=== PATIENT | male | born 1995 | race Caucasian/White ===

== ENCOUNTER 2017-03-19 10:56 | Outpatient (CLI) | payer OTHER ==
[~2017-03-19] VITALS: Ht 180.3 cm; Wt 103.4 kg
== END 2017-03-19 11:15 | disposition home or self-care (01) ==
LOC: OFIC 805 10:56
DX: Z00.00 Encounter for general adult medical examination without abnormal findings (principal)

== ENCOUNTER 2020-03-03 06:33 | Emergency (ER) | payer OTHER ==
[~2020-03-03] VITALS: Ht 180.3 cm; Wt 95.3 kg
[2020-03-03] MEDS ORDERED: IVERMECTIN3 MG PO (13:22)
[2020-03-03] MEDS ORDERED: KETO10TA2 PO (13:22)
[2020-03-03] MEDS ORDERED: PEPCID AC20 MG PO (13:22)
[2020-03-03] MEDS ORDERED: AIRBORNE EFFER1 EACH PO (13:22)
== END 2020-03-03 14:54 | disposition home or self-care (01) ==
LOC: ER 06:33
DX: U07.1 COVID-19 (principal); J31.2 Chronic pharyngitis; R50.9 Fever, unspecified; E86.0 Dehydration

== ENCOUNTER 2024-08-21 23:24 | Emergency (ER) | payer OTHER ==
[~2024-08-21] VITALS: Ht 180.3 cm; Wt 117.9 kg
[~2024-08-21 23:24] MED LIST: AIRBORNE EFFER1 EACH PO; IVERMECTIN3 MG PO; KETO10TA2 PO; PEPCID AC20 MG PO
[2024-08-22] MEDS ORDERED: KETOROLAC TROMETHAMINE 60 MG VIAL IM STA (01:14)
[2024-08-22] MEDS ORDERED: DEXAMETHASONE SODIUM PHOSPHATE 4 MG/ML VIAL IM STA (01:14)
== END 2024-08-22 01:28 | disposition home or self-care (01) ==
LOC: ER 23:31
DX: G89.11 Acute pain due to trauma (principal); M25.571 Pain in right ankle and joints of right foot; Z88.0 Allergy status to penicillin